=== PATIENT | male | born 1975 | race Caucasian/White ===

== ENCOUNTER 2024-01-15 20:32 | Emergency (ER) | payer SELFPAY ==
[2024-01-15] MEDS ORDERED: KETOROLAC 30 MG/ML INJ ONE (21:15)
--- NOTE | 2024-01-15 21:24 | RAD REPORT ---
Exam:Knee Left 3 View HISTORY: Left knee pain FINDINGS: Portable bony/calcific density adjacent to the anterior proximal aspect of the tibia has a chronic ap pearance. No acute fracture or dislocation seen. If the patient continues to have symptoms to suggest an occult fracture, ligamentous or meniscal inju ry then MRI would be recommended
[2024-01-15] MEDS ORDERED: HYDROCODONE/APAP 10/325 TAB ONE (21:57)
--- NOTE | 2024-01-15 22:05 | RAD REPORT ---
EXAMINATION: CT LUMBAR SPINE WITHOUT CONTRAST CLINICAL INDICATION: Back pain status post fall TECHNIQUE: Axial CT images were obtained through the lumbar spine in soft tissue and bone windows wit hout intravenous contrast. Coronal and Sagittal reformatted images were created from the data set. One or more of the following dose reduction techniques were used: Automated exposure control, adjustm ent of the mA and/ or kV according to patient size, and/or iterative reconstruction. Unless otherwise specified, incidental findings do not require dedicated imaging follow-up. COMPARISON: No prior exam. FINDINGS: For purposes of this dictation, it is assumed that there are 5 non rib-bearing lumbar type vertebrae, and the most caudal fully segmented lumbar vertebra is labeled L5. No fracture seen. No dislocation Possible small left posterior lateral disc herniation L4-5 IMPRESSION: No fracture seen. Possible small left posterior lateral disc herniation L4-5 If the patient continues to have significant back pain MRI lumbar spine would be recommended
--- NOTE | 2024-01-15 22:24 | ER ---
Nurse's Notes [facility] Name: Alondra Saldaña Age: 48 yrs Sex: Male : 1975 Arrival Date: 01/15/2024 Time: 20:32 Bed 16 Private MD: Diagnosis: L4-L5 disc herniation;left knee pain;Bilateral shoulder pain;Paraspinal neck pain Presentation: 01/14 20:35 Chief complaint: Patient states: I slipped on water and hurt my left knee and lower bm8 back, Im also having pain in both my shoulders and neck, its feels like burning. 20:35 Coronavirus screen: At this time, the client does not indicate any symptoms associated bm8 with coronavirus-19. Ebola Screen: Patient negative for fever greater than or equal to 101.5 degrees Fahrenheit, and additional compatible Ebola Virus Disease symptoms Patient denies exposure to infectious person. Patient denies travel to an Ebola-affected area in the 21 days before illness onset. No symptoms or risks identified at this time. Initial Sepsis Screen: Does the patient meet any 2 criteria? No. Patient's initial sepsis screen is negative. Does the patient have a suspected source of infection? No. Patient's initial sepsis screen is negative. Risk Assessment: Do you want to hurt yourself or someone else? Patient reports no desire to harm self or others. Onset of symptoms was January 15, 2024 at 20:00. 20:35 Method Of Arrival: EMS: [facility] bm8 20:35 Acuity: SANTINO 3 bm8 Triage Assessment: 20:59 General: Appears in no apparent distress. uncomfortable, Behavior is calm, cooperative, bm8 appropriate for age. Pain: Complains of pain in back and left knee, both shoulder and neck Pain currently is 9 out of 10 on a pain scale. Quality of pain is described as burning, aching, crampy. EENT: No deficits noted. No signs and/or symptoms were reported regarding the EENT system. Neuro: No deficits noted. Level of Consciousness is awake, alert, obeys commands, Oriented to person, place, time, situation, Appropriate for age. Cardiovascular: Denies chest pain, Capillary refill < 3 seconds Patient's skin is warm and dry. Respiratory: No deficits noted. Airway is patent Respiratory effort is even, unlabored, Respiratory pattern is regular, symmetrical. GI: No deficits noted. No signs and/or symptoms were reported involving the gastrointestinal system. : No deficits noted. No signs and/or symptoms were reported regarding the genitourinary system. Derm: No signs and/or symptoms reported regarding the dermatologic system. Musculoskeletal: Reports pain in back and left leg, both shoulders and neck Pain is 9 out of 10 on a pain scale. Historical: - Allergies: 20:59 No Known Allergies; bm8 - Home Meds: 20:59 None [Active]; bm8 - PMHx: 20:59 hard of hearing; bm8 - PSHx: 20:59 None; bm8 - Immunization history:: Adult Immunizations unknown. - Infectious Disease History:: Denies. - Social history:: Smoking status: Patient denies any tobacco usage or history of. - Family history:: not pertinent. Screenin:58 [facility] ED Fall Risk Assessment (Adult) History of falling in the last 3 months, bm8 including since admission Yes- single mechanical fall (1 pt) Confusion or Disorientation No (0 pts) Intoxicated or Sedated No (0 pts) Impaired Gait Yes (1 pt) Mobility Assist Device Used No (0 pt) Altered Elimination No (0 pt) Score/Fall Risk Level 0 - 2 = Low Risk Oriented to surroundings, Maintained a safe environment, Educated pt \T\ family on fall prevention, incl call for assistance when getting out of bed, Assessed \T\ reinforced patient's understanding of fall precautions, Hourly rounding (assess needs \T\ fall precautionary measures) done, Used ambulatory aids as needed (educated on \T\ assisted with), Used gait belt as appropriate. Abuse screen: Denies threats or abuse. Nutritional screening: No deficits noted. Tuberculosis screening: No symptoms or risk factors identified. Assessment: 21:01 Reassessment: see tanner assessment. bm8 21:58 Reassessment: Patient appears in no apparent distress at this time. Patient and/or bm8 family updated on plan of care and expected duration. Pain level reassessed. Patient is alert, oriented x 3, equal unlabored respirations, skin warm/dry/pink. pt reports same level of pain is requesting something stronger. MD notified and new orders recieved Patient states symptoms have improved. 22:40 Reassessment: No changes from previously documented assessment. Patient and/or family bm8 updated on plan of care and expected duration. Pain level reassessed. Patient is alert, oriented x 3, equal unlabored respirations, skin warm/dry/pink. pt states that pain has not really improved. Vital Signs: 20:35 BP 137 / 97; Pulse 69; Resp 17; Temp 98.3; Pulse Ox 96% on R/A; Weight 113.4 kg; Height bm8 6 ft. 2 in. ; Pain 9/10; 21:58 BP 144 / 94; Pulse 66; Resp 17; Temp 98.3; Pulse Ox 98% ; Pain 9/10; bm8 22:40 BP 134 / 97; Pulse 70; Resp 18; Temp 98.3; Pulse Ox 98% ; Pain 9/10; bm8 20:35 Body Mass Index 32.10 (113.40 kg, 187.96 cm) bm8 20:35 Pain Scale: Adult bm8 21:58 Pain Scale: Adult bm8 22:40 Pain Scale: Adult bm8 [place] Coma Score: 21:58 Eye Response: spontaneous(4). Motor Response: obeys commands(6). Verbal Response: bm8 oriented(5). Total: 15. 22:40 Eye Response: spontaneous(4). Motor Response: obeys commands(6). Verbal Response: bm8 oriented(5). Total: 15. ED Course: 20:35 Patient arrived in ED. bm8 20:39 García Pastor MD is Attending Physician. rt 20:58 Triage completed. bm8 20:59 Arm band placed on right wrist. bm8 21:10 Knee Left 3 View XRAY In Process Unspecified. EDMS 21:16 Wes Gardner, RN is Primary Nurse. bm8 21:51 CT Lumbar Spine Wo Con In Process Unspecified. EDMS 21:58 Patient has correct armband on for positive identification. Bed in low position. Call bm8 light in reach. Side rails up X 1. Client placed on continuous cardiac and pulse oximetry monitoring. NIBP monitoring applied. Pulse ox on. NIBP on. Door closed. Noise minimized. Pillow given. Diet tray given. Verbal reassurance given. Head of bed. 21:58 No provider procedures requiring assistance completed. Patient did not have IV access bm8 during this emergency room visit. Patient maintains SpO2 saturation greater than 95% on room air. 22:40 Provided Education on: post er care. bm8 Administered Medications: 21:16 Drug: Ketorolac IM 30 mg IM once Route: IM; Site: left deltoid; bm8 21:57 Follow up: Response: No adverse reaction bm8 21:57 Drug: [place] PO 10 mg-325 mg 1 tabs PO once Route: PO; bm8 22:17 Follow up: Response: No adverse reaction bm8 Medication: 21:58 VIS not applicable for this client. bm8 Outcome: 22:24 Discharge ordered by . rt 22:40 Discharged to home via wheelchair, bm8 22:40 Condition: stable 22:40 Discharge instructions given to patient, Instructed on discharge instructions, follow up and referral plans. medication usage, safety practices, Demonstrated understanding of instructions, follow-up care, medications, Prescriptions given X 3, 22:43 Patient left the ED. bm8 Signatures: Dispatcher [employer] EDMS García Pastor MD MD rt Wes Gardner, RN RN bm8 Corrections: (The following items were deleted from the chart) 22:38 20:35 Chief complaint: Patient states: I slipped on water and hurt my left knee and bm8 lower back bm8 22:40 20:59 Pain: Complains of pain in back and left knee Pain currently is 9 out of 10 on a bm8 pain scale. Quality of pain is described as aching, crampy, bm8 22:40 20:59 Musculoskeletal: Range of motion: limited in left knee Reports pain in back and bm8 left leg Pain is 9 out of 10 on a pain scale. bm8 22:40 22:38 Musculoskeletal: Reports bm8 bm8
--- NOTE | 2024-01-15 22:24 | EDPHYS ---
Physician Documentation [facility] Name: Alondra Saldaña Age: 48 yrs Sex: Male : 1975 Arrival Date: 01/15/2024 Time: 20:32 Bed 16 Private MD: ED Physician García Pastor HPI: 01/14 21:06 This 48 yrs old Male presents to ER via EMS with complaints of Knee Injury. rt 21:06 Patient presents to the ED with any acute onset of a low left-sided back pain as well rt as a left knee pain. Patient states that he was trying hold the door open for someone he slipped on a wet floor causing have a pop in his left lower back, left knee. Denies other acute complaints at this time, symptoms are moderate in severity, no other aggravating or alleviating factors.. Historical: - Allergies: 20:59 No Known Allergies; bm8 - Home Meds: 20:59 None [Active]; bm8 - PMHx: 20:59 hard of hearing; bm8 - PSHx: 20:59 None; bm8 - Immunization history:: Adult Immunizations unknown. - Infectious Disease History:: Denies. - Social history:: Smoking status: Patient denies any tobacco usage or history of. - Family history:: not pertinent. ROS: 21:06 Constitutional: Negative for fever, chills, and weight loss, Cardiovascular: Negative rt for chest pain, palpitations, and edema, Respiratory: Negative for shortness of breath, cough, wheezing, and pleuritic chest pain, Abdomen/GI: Negative for abdominal pain, nausea, vomiting, diarrhea, and constipation, Neuro: Negative for headache, weakness, numbness, tingling, and seizure, 21:06 Back: Positive for pain at rest, pain with movement, 21:06 MS/extremity: Positive for pain, Negative for swelling, Exam: 21:06 Constitutional: This is a well developed, well nourished patient who is awake, alert, rt and in no acute distress. Head/Face: Normocephalic, atraumatic. Chest/axilla: Normal chest wall appearance and motion. Nontender with no deformity. No lesions are appreciated. Cardiovascular: Regular rate and rhythm with a normal S1 and S2. No gallops, murmurs, or rubs. Normal PMI, no JVD. No pulse deficits. Respiratory: Lungs have equal breath sounds bilaterally, clear to auscultation and percussion. No rales, rhonchi or wheezes noted. No increased work of breathing, no retractions or nasal flaring. Abdomen/GI: Soft, non-tender, with normal bowel sounds. No distension or tympany. No guarding or rebound. No evidence of tenderness throughout. Skin: Warm, dry with normal turgor. Normal color with no rashes, no lesions, and no evidence of cellulitis. Neuro: Awake and alert, GCS 15, oriented to person, place, time, and situation. Cranial nerves II-XII grossly intact. Motor strength 5/5 in all extremities. Sensory grossly intact. Cerebellar exam normal. Normal gait. 21:06 Back: Tenderness to left mid lumbar region, no midline tenderness, 21:06 Musculoskeletal/extremity: Tenderness medially on left knee, no appreciable swelling, skin is intact. Vital Signs: 20:35 BP 137 / 97; Pulse 69; Resp 17; Temp 98.3; Pulse Ox 96% on R/A; Weight 113.4 kg; Height bm8 6 ft. 2 in. ; Pain 9/10; 21:58 BP 144 / 94; Pulse 66; Resp 17; Temp 98.3; Pulse Ox 98% ; Pain 9/10; bm8 22:40 BP 134 / 97; Pulse 70; Resp 18; Temp 98.3; Pulse Ox 98% ; Pain 9/10; bm8 20:35 Body Mass Index 32.10 (113.40 kg, 187.96 cm) bm8 20:35 Pain Scale: Adult bm8 21:58 Pain Scale: Adult bm8 22:40 Pain Scale: Adult bm8 [place] Coma Score: 21:58 Eye Response: spontaneous(4). Motor Response: obeys commands(6). Verbal Response: bm8 oriented(5). Total: 15. 22:40 Eye Response: spontaneous(4). Motor Response: obeys commands(6). Verbal Response: bm8 oriented(5). Total: 15. MDM: 20:47 Medical Screening Exam initiated rt 23:27 Differential Diagnosis Disc herniation, fracture, knee fracture, soft tissue injury of rt knee. Data reviewed: vital signs, nurses notes, radiologic studies. I considered the following discharge prescriptions or medication management in the emergency department Medications were administered in the Emergency Department. See MAR. Independent interpretation of the following test(s) in the Emergency Department X-Ray: My interpretation is No fracture seen on interpretation of x-ray images. Counseling: I had a detailed discussion with the patient and/or guardian regarding the historical points, exam findings, and any diagnostic results supporting the discharge/admit diagnosis, radiology results, the need for outpatient follow up. Response to treatment: the patient's symptoms have mildly improved after treatment. 01/14 20:54 Order name: Knee Left 3 View XRAY; Complete Time: 21:56 rt 01/14 20:54 Order name: CT Lumbar Spine Wo Con; Complete Time: 22:09 rt Administered Medications: 21:16 Drug: Ketorolac IM 30 mg IM once Route: IM; Site: left deltoid; bm8 21:57 Follow up: Response: No adverse reaction bm8 21:57 Drug: [place] PO 10 mg-325 mg 1 tabs PO once Route: PO; bm8 22:17 Follow up: Response: No adverse reaction bm8 Disposition Summary: 01/15/24 22:24 Discharge Ordered Notes: Location: Home rt Problem: new rt Symptoms: have improved rt Condition: Stable rt Diagnosis - L4-L5 disc herniation rt - left knee pain rt - Bilateral shoulder pain rt - Paraspinal neck pain rt Followup: rt - With: Private Physician - When: 2 - 3 days - Reason: Discharge Instructions: - Discharge Summary Sheet rt - Acute Back Pain, Adult rt - Shoulder Pain rt - Acute Knee Pain, Adult rt Forms: - Medication Reconciliation Form rt - Antibiotic Education rt - Prescription Opioid Use rt - Patient Portal Instructions rt - Leadership Thank You Letter rt Prescriptions: - Cyclobenzaprine 10 mg Oral tablet - take 1 tablet ORAL route every 8 hours As needed; 18 tablet; Refills: 0, rt Product Selection Permitted - Tramadol 50 mg Oral tablet - take 1 tablet ORAL route every 8 hours as needed; 18 tablet; Refills: 0, rt Product Selection Permitted - Medrol (Arian) 4 mg Oral Tablets, Dose Pack - take 1 tablet ORAL route as directed - follow package instructions; 1 packet; rt Refills: 0, Product Selection Permitted Signatures: Dispatcher [employer] García Louis MD MD rt Wes Gardner, RN RN bm8
[2024-01-16 11:24] VITALS: TEMP 98.3
[2024-01-16 11:31] VITALS: O2SAT 98
[2024-01-16 11:37] VITALS: BP 134/97
== END 2024-01-15 22:43 | disposition home or self-care (01) ==
LOC: ER 20:32
DX: M51.26 Other intervertebral disc displacement, lumbar region (principal); M25.562 Pain in left knee; M25.512 Pain in left shoulder; M25.511 Pain in right shoulder; M54.2 Cervicalgia
CPT/HCPCS: 72131; 96372; 99284